=== PATIENT | female | born 1955 | race Caucasian/White ===

== ENCOUNTER 2018-07-19 12:27 | Emergency (ER) | payer MEDICARE, OTHER ==
[2018-07-19 13:11] LABS: ADD MAN DIFF? NO
[2018-07-19 13:16] LABS: BASOPHIL # 0.1 10^3/ul (0.0-0.1); BASOPHILS % 0.7 % (0.0-2.0); EOSINOPHILS # 0.1 10^3/ul (0.0-0.5); EOSINOPHILS % 0.7 % (0.0-7.0); HEMATOCRIT 42.4 % (37.0-47.0); HEMOGLOBIN 13.9 g/dl (12.0-16.0); LYMPHOCYTES % 31.6 % (15.0-51.0); MEAN CORPUSCULAR HGB CONC 32.8 g/dl (32.0-37.0); MEAN CORPUSCULAR VOLUME 88.5 fl (82.0-101.0); MEAN PLATELET VOLUME 10.2 fl (7.4-10.4); MONOCYTE # 0.7 10^3/ul (0.3-0.9); MONOCYTES % 7.5 % (0.0-11.0); NEUTROPHIL # 5.5 10^3/ul (1.6-7.5); NEUTROPHILS % 59.2 % (39.0-77.0); PLATELET COUNT 293 10^3/UL (140-415); RED BLOOD COUNT 4.79 10^6/ul (4.20-5.40); RED CELL DISTRIBUTION WIDTH 13.2 % (11.5-14.5)
[2018-07-19 13:16] LABS: WHITE BLOOD COUNT 9.3 10^3/ul (4.8-10.8)
[2018-07-19 13:33] LABS: ANION GAP 13 (8-16); BLOOD UREA NITROGEN 18 mg/dl (7-20); CALCIUM 9.3 mg/dl (8.4-10.2); CARBON DIOXIDE 25 mmol/L (21-31); CHLORIDE 107 mmol/L (97-110); CHOL/HDL RATIO 5.5 RATIO; CHOLESTEROL 200 mg/dl (100-200); GLUCOSE 88 mg/dl (70-220); HDL CHOLESTEROL 36 mg/dl (35-98); LDL CHOLESTEROL,CALCULATED 105 mg/dl; POTASSIUM 4.3 mmol/L (3.5-5.1); SODIUM 141 mmol/L (135-144); TRIGLYCERIDES 295 mg/dl (0-149)
[2018-07-19] MEDS: morphine 4 MG/ML VIAL IV (13:34)
[2018-07-19] MEDS: SOD CHLORIDE 0.9% 1,000 ML IV (13:34)
[2018-07-19] MEDS: ONDANSETRON 4 MG INJ IV (13:34)
[2018-07-19 13:44] LABS: TROPONIN-I < 0.012 ng/ml (0.000-0.120)
[2018-07-19 13:48] LABS: INR 0.94; PROTIME 12.7 Sec (11.9-14.9)
[2018-07-19 13:49] LABS: PARTIAL THROMBOPLASTIN TIME 25.4 Sec (23.0-35.0)
== END 2018-07-19 14:17 | disposition home or self-care (01) ==
LOC: E/R 12:27
DX: H66.92 Otitis media, unspecified, left ear (principal); R51 Headache; H57.89 Other specified disorders of eye and adnexa; I10 Essential (primary) hypertension; E66.9 Obesity, unspecified; E11.9 Type 2 diabetes mellitus without complications; Z68.41 Body mass index [BMI] 40.0-44.9, adult; Z79.84 Long term (current) use of oral hypoglycemic drugs; Z79.82 Long term (current) use of aspirin
CPT/HCPCS: 36415; 70450; 71045; 80048; 80061; 84484; 85025; 85610; 85730; 93005; 96374; 96375; 99285-25